=== PATIENT | female | born 1955 | race Hispanic/Latino ===

== ENCOUNTER → 2017-11-04 | Outpatient (CLI) | payer BC ==
[~2017-11-04] MED LIST: HYDR12.530 PO; PANT40TA25 PO; TRAM1TAB PO
== END | disposition home or self-care (01) ==
LOC: RAH 11:04
PROVIDERS: ATTEND Internal Medicine
DX: Z12.31 Encounter for screening mammogram for malignant neoplasm of breast (principal)
CPT/HCPCS: 77067

== ENCOUNTER → 2018-01-16 | Outpatient (CLI) | payer OTHER | END | disposition home or self-care (01) | LOC: OIH 14:13 | PROVIDERS: ATTEND Internal Medicine | DX: M47.896 Other spondylosis, lumbar region (principal); M85.88 Other specified disorders of bone density and structure, other site; M25.78 Osteophyte, vertebrae; M40.46 Postural lordosis, lumbar region; M48.061 Spinal stenosis, lumbar region without neurogenic claudication; Z98.1 Arthrodesis status | CPT/HCPCS: 72100 ==

== ENCOUNTER → 2018-11-12 | Outpatient (CLI) | payer MEDICARE | END | disposition home or self-care (01) | LOC: RAH 11:14 | PROVIDERS: ATTEND Internal Medicine | DX: Z12.31 Encounter for screening mammogram for malignant neoplasm of breast (principal) | CPT/HCPCS: 77067 ==

== ENCOUNTER → 2019-03-09 | Outpatient (CLI) | payer MEDICARE | END | disposition home or self-care (01) | LOC: RAH 14:50 | PROVIDERS: ATTEND Internal Medicine | DX: M19.011 Primary osteoarthritis, right shoulder (principal) | CPT/HCPCS: 73221 ==

== ENCOUNTER → 2019-03-10 | Outpatient (CLI) | payer MEDICARE | END | disposition home or self-care (01) | LOC: RAH 14:52 | PROVIDERS: ATTEND Internal Medicine | DX: M51.16 Intervertebral disc disorders with radiculopathy, lumbar region (principal); M47.26 Other spondylosis with radiculopathy, lumbar region; N28.1 Cyst of kidney, acquired | CPT/HCPCS: 72148 ==

== ENCOUNTER 2019-05-11 07:02 | Day surgery (SDC) | payer MEDICARE ==
[2019-05-08 12:04] VITALS: BP 120/65
[2019-05-08 12:34] LABS: BASOPHILS % (AUTO) 0.4 % (0.0-5.0); EOSINOPHILS % (AUTO) 1.3 % (0.0-8.0); HEMATOCRIT 38.3 % (36-48); MEAN CORPUSCULAR HEMOGLOBIN 30.3 pg (27.0-33.0); MONOCYTES % (AUTO) 7.2 % (3.0-13.0); NEUTROPHILS % (AUTO) 56.1 % (40.0-77.0); NUCLEATED RED BLOOD CELLS 0.1 % (0.0-0.19); PLATELET COUNT (AUTO) 224 K/uL (130-400); RED BLOOD CELL COUNT(AUTO) 4.16 MIL/uL (4.00-5.50); WHITE BLOOD COUNT (AUTO) 5.8 K/uL (4.8-10.8)
[2019-05-08 12:49] LABS: CREATININE 0.6 mg/dL (0.5-1.5); POTASSIUM 3.6 mmol/L (3.5-5.1)
[2019-05-11] VITALS (13 sets, daily range): BP systolic 122–145; BP diastolic 54–79
[~2019-05-11] VITALS: Ht 157.5 cm; Wt 73.6 kg
[~2019-05-11 07:02] MED LIST changes: +DOCU-272 PO; +FLUT15.845 NS; +GABA-531 PO; -PANT40TA25 PO; +TYLENOL PM PO
[2019-05-11] MEDS ORDERED: EPINEPHRINE 1 MG/ML 30ML VIAL IJ ONE (07:32)
[2019-05-11] MEDS ORDERED: LACTATED RINGERS 1000ML 1,000 ML IV ONE (07:40)
[2019-05-11] MEDS: CEFAZOLIN SODIUM 1 GM VIAL IVP ONE ×2 (07:52→08:52)
--- NOTE | 2019-05-11 08:12 | NUR ---
POTENTIAL FOR INFECTION: NO SHAVING NEEDED TO RIGHT SHOULDER / UPPER RT ARM. WIPED WITH MICHELLE: 2% CHLORHEXIDINE GLUCONATE CLOTH PATIENTS PRE-OP SKIN PREP.
[2019-05-11] MEDS ORDERED: DEXAMETHASONE SOD PHOSPHATE 10MG/ML 1ML VIAL ONE (08:19)
[2019-05-11] MEDS ORDERED: ONDANSETRON HCL 4 MG/2 ML VIAL ONE (08:19)
[2019-05-11] MEDS ORDERED: MIDAZOLAM HCL 1 MG/ML 2ML VIAL ONE (08:19)
[2019-05-11] MEDS ORDERED: PROPOFOL 10 MG/ML 20ML VIAL IV ONE (08:19)
[2019-05-11] MEDS ORDERED: FENTANYL CITRATE PF 50 MCG/1 ML 2ML VIAL ONE (08:19)
[2019-05-11] MEDS ORDERED: LIDOCAINE PF 2% 5ML ABBOJECT ONE (08:19)
[2019-05-11] MEDS ORDERED: ROCURONIUM 10MG/1ML SYR 10 MG/ML ML ONE (08:20)
[2019-05-11] MEDS ORDERED: EPHEDRINE SULFATE 50 MG/ML AMPULE ONE (09:00)
[2019-05-11] MEDS ORDERED: GLYCOPYRROLATE 1 MG/5 ML SYRINGE ONE (11:02)
[2019-05-11] MEDS ORDERED: NEOSTIGMINE 5MG/5ML SYR IV ONE (11:03)
[2019-05-11] MEDS ORDERED: ACET-66 PO (11:37)
[2019-05-11] MEDS ORDERED: KETO10 PO (11:37)
[2019-05-11] MEDS ORDERED: TRAM50TA4 PO (11:37)
[2019-05-11] MEDS ORDERED: CEPH500B PO (11:39)
--- NOTE | 2019-05-11 12:22 | NUR ---
RECEIVE PT RECEIVED FROM PACU VIA STRETCHER AWAKE ALERT ORIENTED X3. PT ASSISTED TO BATHROOM BY PCP, VOIDED X1. PT STABLE. RIGHT ARM IN SLING, VERY MINIMAL MOVEMENT NOTED, SENSATION INTACT, CAPILLARY REFILLS BRISK, RADIAL PULSES PRESENT. OPSITE DRESSINGS X3 RIGHT SHOULDER DRY AND INTACT, NO OOZING NOTED.
--- NOTE | 2019-05-11 13:05 | NUR ---
DISCHARGE PT DISCHARGED VIA WHEELCHAIR WITH PARENTS. PT STABLE. DRESSINGS TO RIGHT SHOULDER REMAINS DRY AND INTACT, NO OOZING NOTED. RIGHT ARM REMAINS IN SLING. DISCHARGE INSTRUCTIONS GIVEN TO PARENTS AND PT, VERBALIZED UNDERSTANDING.
== END 2019-05-11 13:05 | disposition home or self-care (01) ==
LOC: DAH 07:02
PROVIDERS: ATTEND Orthopaedic Surgery
DX: M75.21 Bicipital tendinitis, right shoulder (principal); M75.01 Adhesive capsulitis of right shoulder; M25.511 Pain in right shoulder; M65.811 Other synovitis and tenosynovitis, right shoulder; G89.29 Other chronic pain; Z88.5 Allergy status to narcotic agent; Z79.899 Other long term (current) drug therapy; Z98.890 Other specified postprocedural states; Z90.710 Acquired absence of both cervix and uterus; Z82.49 Family history of ischemic heart disease and other diseases of the circulatory system
CPT/HCPCS: 29823; 29824; 29826; 36415; 64415; 76942; 80048; 85025; A4215; A4221; A4222; A4223 ×2; A4565; A4649 ×2; A4663; A4930; A5120; A6204; G0168; J0171; J0690; J1100; J2001; J2250; J2405; J2704; J2710; J3010; J3490 ×2; J7120 ×2

== ENCOUNTER → 2020-12-02 | Outpatient (CLI) | payer MEDICARE ==
[~2020-12-02] MED LIST changes: +ACET-66 PO; +CEPH500B PO; +KETO10 PO; -TRAM1TAB PO; +TRAM50TA4 PO; -TYLENOL PM PO
== END | disposition home or self-care (01) ==
LOC: RAH 07:52
PROVIDERS: ATTEND Internal Medicine
DX: Z12.31 Encounter for screening mammogram for malignant neoplasm of breast (principal)
CPT/HCPCS: 77067